=== PATIENT | female | born 1995 | race Caucasian/White ===

== ENCOUNTER 2023-06-23 10:15 | Day surgery (SDC) | payer OTHER ==
[~2023-06-23] VITALS: Ht 162.6 cm; Wt 58.0 kg
[~2023-06-23 10:15] MED LIST: KETOROLAC 60MG 2ML VIAL As Ordered ONE; LIDOCAINE 2% 100MG/5ML SDV (FOR ANES.) As Ordered ONE; MIDAZOLAM INJ 2MG/2ML VIAL As Ordered ONE; ONDANSETRON 4MG 2ML VIAL As Ordered ONE; ROCURONIUM BROMIDE 50MG/5ML VIAL As Ordered ONE; SUGAMMADEX SODIUM 500 MG/5 ML VIAL (BRIDION) As Ordered ONE; fentaNYL 100 MCG/2 ML INJECTION As Ordered ONE; propofoL 200 MG/20 ML VIAL As Ordered ONE
[2023-06-23 10:47] LABS: HEMATOCRIT 41.6 % (36.0-47.0); HEMOGLOBIN 14.1 g/dl (12.0-15.5); MEAN CORPUSCULAR HEMOGLOBIN 30.3 pg (27.0-33.0); MEAN CORPUSCULAR HGB CONC 33.9 g/dl (32.0-36.5); MEAN CORPUSCULAR VOLUME 89.3 fl (80.0-96.0); PLATELET COUNT, AUTOMATED 234 10^3/uL (150-450); RED BLOOD COUNT 4.66 10^6/uL (4.00-5.40); WHITE BLOOD COUNT 5.9 10^3/uL (4.0-10.0)
[2023-06-23] MEDS ORDERED: LR 1,000 ML IV SCH ×2 (12:05→12:55)
[2023-06-23] MEDS ORDERED: METOCLOPRAMIDE INJ 10MG/2ML VIAL IV PRN (12:05)
[2023-06-23] MEDS ORDERED: ONDANSETRON 4MG 2ML VIAL IV PRN (12:05)
[2023-06-23] MEDS ORDERED: fentaNYL 100 MCG/2 ML INJECTION IV PRN (12:05)
[2023-06-23] MEDS ORDERED: diphenhydrAMINE 50MG/ML VIAL IV PRN (12:05)
[2023-06-23] MEDS ORDERED: oxyCODONE 5MG TAB PO PRN (12:05)
[2023-06-23] MEDS ORDERED: MEPERIDINE 25 MG/ML 1ML VIAL IV PRN (12:05)
[2023-06-23] MEDS ORDERED: PERCOCET 5MG/325MG TAB PO PRN (12:55)
[2023-06-23] MEDS ORDERED: IBUP-1022 PO (12:56)
[2023-06-23 13:36] VITALS: BP 98/66; TEMP 97.9; O2SAT 100
== END 2023-06-23 13:53 | disposition home or self-care (01) ==
LOC: M SDC 10:15
PROVIDERS: ATTEND Specialist
DX: Z30.2 Encounter for sterilization (principal); Z91.010 Allergy to peanuts; F32.A Depression, unspecified
CPT/HCPCS: 36415; 58661; 81025; 85027; 88302; J0665; J1100; J1885; J2250; J2405; J3010